=== PATIENT | female | born 1940 | race Caucasian/White ===

== ENCOUNTER 2018-04-07 06:58 | Day surgery (SDC) | payer OTHER, BC ==
[2018-04-05 15:02] VITALS: BMI 29.2
[2018-04-07] MEDS ORDERED: BUPIVACAINE HCL/PF 0.25% (2.5MG/ML) 10 ML VIAL ONE (07:26)
[2018-04-07] MEDS ORDERED: methylPREDNISolone ACET (DEPO) 80 MG/1 ML VIAL ONE (07:26)
[2018-04-07] MEDS ORDERED: PROPOFOL 20 ML ONE (08:57)
[2018-04-07] MEDS ORDERED: LIDOCAINE HCL 1% PRESERVATIVE FREE - 30ML VIAL IJ ONE (09:04)
[2018-04-07] MEDS ORDERED: methylPREDNISolone ACET (DEPO) 80 MG/1 ML VIAL IJ ONE (09:09)
[2018-04-07] MEDS ORDERED: BUPIVACAINE HCL/PF 0.25% (2.5MG/ML) 10 ML VIAL IJ ONE (09:09)
--- NOTE | 2018-04-07 10:41 | OP ---
DATE OF OPERATION: 04/07/2018 PREOPERATIVE DIAGNOSIS: Lumbar spinal stenosis and radiculopathy. POSTOPERATIVE DIAGNOSIS: Lumbar spinal stenosis and radiculopathy. [employer] SURGEON: Venkat Flood MD PROCEDURES: 1. Left L2-L3 epidural steroid injection. 2. Intraoperative fluoroscopy. ANESTHESIA: Local with IV sedation. ANESTHESIOLOGIST: Ale Lomeli MD INDICATIONS: The patient is a 77-year-old female with history of severe L4-5, moderate L2-3 and L3-4 stenosis. She had one injection 4 years earlier with good results. She has recently experienced increasing symptoms and is therefore here for her first epidural steroid injection this year. The risks of the procedure include, but are not limited to, bleeding, infection, spinal headache, and neurological injury. The patient understands indication for the procedure, procedure in detail, risks and benefits, and alternatives for the treatment of her lumbar condition, and wishes to proceed. No guarantees given for a favorable outcome. PROCEDURE IN DETAIL: The patient was taken to the operating room. She was placed in prone position with a pillow under her hips. Lumbar region was cleaned with alcohol and prepped with Betadine. A skin wheal raised with 5 mL of 1% Xylocaine. A 22-gauge spinal needle was inserted under AP and lateral fluoroscopic guidance from a left-sided approach to L2-3. Fairly difficult access was encountered, as the patient has extensive spondylosis and calcified ligaments. Loss of resistance technique was utilized. There was no CSF or blood back flow. After epidural space was accessed from a left-sided approach to L2-3, needle bevel was turned medially. Next, 80 mg of Depo-Medrol and 1 mL of 0.25% Marcaine was injected. Needle was withdrawn and sterile bandage was applied. The patient tolerated the procedure well, and returned back to the supine position, moving bilateral lower extremities well. She was not complaining of a headache. VENKAT FLOOD M.D. [id number] MTDD
[2018-04-07] MEDS ORDERED: traMADol HCL 50 MG TABLET ONE (11:08)
[2018-04-07 11:25] VITALS: PULSE 66
[2018-04-07 14:40] VITALS: BP 135/75; TEMP 97.8
== END 2018-04-07 13:00 | disposition home or self-care (01) ==
LOC: JASU-SURG 06:58
PROVIDERS: ATTEND Neurological Surgery
PROC: 3E0R33Z Introduction of Anti-inflammatory into Spinal Canal, Percutaneous Approach (ICD-10-PCS; 2018-04-07)
PROC: B01BZZZ Fluoroscopy of Spinal Cord (ICD-10-PCS; 2018-04-07)
PROC: 3E0R3BZ Introduction of Anesthetic Agent into Spinal Canal, Percutaneous Approach (ICD-10-PCS; principal; 2018-04-07 08:30)
DX: M48.061 Spinal stenosis, lumbar region without neurogenic claudication (principal); M54.16 Radiculopathy, lumbar region
CPT/HCPCS: 76000-TC-FY

== ENCOUNTER 2018-05-05 06:04 | Day surgery (SDC) | payer OTHER, BC ==
[2018-05-04 11:04] VITALS: BMI 29.2
[2018-05-05 06:31] VITALS: TEMP 97.5
[2018-05-05] MEDS ORDERED: methylPREDNISolone ACET (DEPO) 80 MG/1 ML VIAL ONE (07:23)
[2018-05-05] MEDS ORDERED: BUPIVACAINE HCL/PF 0.25% (2.5MG/ML) 10 ML VIAL ONE (07:23)
[2018-05-05] MEDS ORDERED: PROPOFOL 20 ML ONE (08:13)
[2018-05-05] MEDS ORDERED: BUPIVACAINE HCL/PF 0.25% (2.5MG/ML) 10 ML VIAL IJ ONE (08:21)
[2018-05-05] MEDS ORDERED: LIDOCAINE 1% P/F 10 MG/ML VIAL INF ONE (08:21)
[2018-05-05] MEDS ORDERED: methylPREDNISolone ACET (DEPO) 80 MG/1 ML VIAL IJ ONE (08:22)
--- NOTE | 2018-05-05 09:14 | OP ---
DATE OF OPERATION: 05/05/2018 PREOPERATIVE DIAGNOSIS: Lumbar facet disease with mechanical lower back pain. POSTOPERATIVE DIAGNOSIS: Lumbar facet disease with mechanical lower back pain. ATTENDING SURGEON: Venkat Flood MD PROCEDURE: 1. Bilateral L4-L5 facet block. 2. Intraoperative fluoroscopy. ANESTHESIA: Local with IV sedation. ANESTHESIOLOGIST: Ale Lomeli MD ESTIMATED BLOOD LOSS: Minimal. INDICATIONS: The patient is a 77-year-old female with back pain and lumbar radiculopathy. Previously, she had undergone epidural steroid injection with improvement of her radicular symptoms. Her mechanical back pain has recurred. She is here for her first facet block at L4-L5 for her facet disease. The risks of the procedure include, but are not limited to, bleeding, infection, spinal headache, and neurological injury. The patient understands the indications for the procedure, the procedure in detail, risks and benefits, and alternative treatments for her lumbar condition, and she wishes to proceed. No guarantees were given for a favorable outcome. PROCEDURE IN DETAIL: After the patient was taken to the operating room, she was placed in the prone position with a pillow under her hips. Lumbar region was cleaned with alcohol and prepped with Betadine. Bilateral skin wheal was raised over facet joints at L4-L5. A 22-gauge spinal needle was inserted under AP and lateral fluoroscopic guidance over the inferomedial aspect of the facet joint at L4-L5 bilaterally. There was no CSF or blood backflow. Depo-Medrol 80 mg and 1 mL of 0.25% Marcaine were injected in total, half on each side. The patient tolerated the procedure well and was turned back to the supine position, moving bilateral lower extremities well. She did not complain of headache. VENKAT FLOOD M.D. [id number]
[2018-05-05 10:36] VITALS: BP 191/77; PULSE 66
== END 2018-05-05 10:44 | disposition home or self-care (01) ==
LOC: JASU-SURG 06:04
PROVIDERS: ATTEND Neurological Surgery
PROC: 3E0T33Z Introduction of Anti-inflammatory into Peripheral Nerves and Plexi, Percutaneous Approach (ICD-10-PCS; 2018-05-05)
PROC: BR16YZZ Fluoroscopy of Lumbar Facet Joint(s) using Other Contrast (ICD-10-PCS; 2018-05-05)
PROC: 3E0T3BZ Introduction of Anesthetic Agent into Peripheral Nerves and Plexi, Percutaneous Approach (ICD-10-PCS; principal; 2018-05-05 08:00)
DX: M48.07 Spinal stenosis, lumbosacral region (principal); M54.5 Low back pain
CPT/HCPCS: 76000-TC-FY

== ENCOUNTER 2018-07-07 07:39 | Day surgery (SDC) | payer OTHER, BC ==
[2018-07-06 09:16] VITALS: BMI 29.2
[2018-07-07] MEDS ORDERED: PROPOFOL 20 ML ONE (09:10)
[2018-07-07] MEDS ORDERED: LIDOCAINE HCL 0.5%, 5 MG/1 ML (50mL MDV) NR ONE (09:16)
[2018-07-07] MEDS ORDERED: methylPREDNISolone ACET (DEPO) 80 MG/1 ML VIAL IM ONE (09:16)
--- NOTE | 2018-07-07 11:01 | OP ---
DATE OF OPERATION: 07/07/2018 PREOPERATIVE DIAGNOSIS: 1. Lumbar spinal stenosis. 2. Lumbar scoliosis. POSTOPERATIVE DIAGNOSIS: 1. Lumbar spinal stenosis. 2. Lumbar scoliosis. ATTENDING SURGEON: Venkat Flood MD PROCEDURE: 1. L2-L3 epidural steroid injection. 2. Intraoperative fluoroscopy. ANESTHESIA: Local with IV sedation. ANESTHESIOLOGIST: Ale Lomeli MD INDICATIONS: The patient is a 77-year-old female with a history of back pain and lumbar radiculopathy. Because of intractable symptoms and failure of conservative treatment, she is here for the second epidural steroid injection of the year. The risks of the procedure include, but are not limited to, bleeding, infection, spinal headache, and neurological injury. The patient understands the indications for the procedure, the procedure in detail, risks and benefits, and alternative treatments for her lumbar condition, and she wishes to proceed. No guarantees were given for a favorable outcome. PROCEDURE IN DETAIL: After the patient was taken to the operating room, she was placed in the prone position with a pillow under her hips. Lumbar region was cleaned with alcohol and prepped with Betadine. A skin wheal was raised with 5 mL of 1% Xylocaine, and a 20-gauge spinal needle was inserted under AP and lateral fluoroscopic guidance from a left-sided approach to L2-L3. A fairly tight-edged laminar space was noted on the left side of L2-L3. Loss of resistance technique was utilized, and there was no CSF or blood backflow. Depo-Medrol 80 mg and 1 mL of 0.25% Marcaine were injected. AP and lateral fluoroscopic imaging were applied. The patient tolerated the procedure well, was turned back to the supine position, moving bilateral lower extremities well. She did not complain of a headache. VENKAT FLOOD M.D. [id number]
[2018-07-07 12:09] VITALS: BP 120/60; PULSE 60; TEMP 98
== END 2018-07-07 11:15 | disposition home or self-care (01) ==
LOC: JASU-SURG 07:39
PROVIDERS: ATTEND Neurological Surgery
PROC: 3E0R33Z Introduction of Anti-inflammatory into Spinal Canal, Percutaneous Approach (ICD-10-PCS; 2018-07-07)
PROC: B01BZZZ Fluoroscopy of Spinal Cord (ICD-10-PCS; 2018-07-07)
PROC: 3E0R3BZ Introduction of Anesthetic Agent into Spinal Canal, Percutaneous Approach (ICD-10-PCS; principal; 2018-07-07 09:30)
DX: M48.061 Spinal stenosis, lumbar region without neurogenic claudication (principal); M41.86 Other forms of scoliosis, lumbar region; M54.89 Other dorsalgia
CPT/HCPCS: 76000-TC-FY

== ENCOUNTER 2018-10-15 09:16 | Day surgery (SDC) | payer OTHER, BC ==
[2018-10-07 12:38] VITALS: BMI 28.3
[2018-10-15] MEDS ORDERED: EPINEPHrine 1:1,000 1 MG/1 ML - 30ML VIAL (INJECTION) ONE (11:55)
[2018-10-15] MEDS ORDERED: BUPIVACAINE HCL/PF 2.5 MG/ML - 30 ML VIAL IJ ONE (11:55)
[2018-10-15] MEDS ORDERED: PROPOFOL 20 ML ONE (12:25)
[2018-10-15] MEDS ORDERED: CLINDAMYCIN PHOSPHATE 600 MG/4 ML VIAL ONE (12:37)
[2018-10-15] MEDS ORDERED: ePHEDrine SULFATE 50 MG/1 ML AMPULE ONE (12:46)
[2018-10-15] MEDS ORDERED: ONDANSETRON 4 MG/2 ML VIAL ONE (12:48)
[2018-10-15] MEDS ORDERED: LIDOCAINE HCL/PF 2% SDV 5ML VIAL ONE (12:48)
[2018-10-15] MEDS ORDERED: KETOROLAC TROMETHAMINE 30 MG/1 ML VIAL ONE (12:48)
[2018-10-15] MEDS ORDERED: DEXAMETHASONE SOD PHOSPHATE 4 MG/1 ML VIAL ONE (12:48)
[2018-10-15] MEDS ORDERED: BUPIVACAINE HCL/PF 0.25% (2.5MG/ML) 10 ML VIAL IJ ONE (13:04)
[2018-10-15] MEDS ORDERED: oxyCODONE HCL 5 MG TABLET PO PRN ×2 (13:21)
[2018-10-15] MEDS ORDERED: ONDANSETRON 4 MG/2 ML VIAL IVPUSH PRN (13:21)
[2018-10-15] MEDS ORDERED: PROMETHAZINE HCL 25 MG/1 ML VIAL IVPUSH PRN (13:21)
[2018-10-15 13:42] VITALS: TEMP 97.5
[2018-10-15] MEDS ORDERED: oxyCODONE HCL 5 MG TABLET ONE (14:18)
--- NOTE | 2018-10-15 15:12 | OP ---
DATE OF OPERATION: 10/15/2018 SURGEON: Haja Heard M.D. GOLD LAYER: Luis Pickett PREOPERATIVE DIAGNOSIS: 1. Left knee medial lateral meniscal tear. 2. Left knee cartilage injury. 3. Left knee synovitis. POSTOPERATIVE DIAGNOSIS: 1. Left knee medial lateral meniscal tear. 2. Left knee cartilage injury. 3. Left knee synovitis. PROCEDURE: 1. Left knee arthroscopy, partial meniscectomy medial and lateral meniscus. CPT code 81958. 2. Left knee arthroscopy with chondroplasty and abrasion plasty. CPT code 39143. 3. Left knee arthroscopy synovectomy. CPT code 75549. FINDINGS: 1. Medial meniscus anterior horn tear/minor. 2. Lateral meniscus anterior horn and posterior horn tear/minor. 3. Synovitis patellofemoral medial lateral notch area with large medial plica. 4. Anterior medial and medial femoral condyle 4 cm x 6 cm with grade 2 changes. 5. ACL and PCL intact. 6. Minimal cartilage changes lateral joint line. 7. Central grade 2-3 cartilage injury patellofemoral trochlea with grade 4 changes at the site of medial plica adhesion. PROCEDURE: Informed consent was obtained. The patient came to the operating room, where the lower extremity was prepped and draped in a sterile fashion. A tourniquet was placed on the upper thigh, but not inflated. Using standard arthroscopic technique, a lateral incision and portal was made to allow for introduction of the camera into the suprapatellar bursa. This was then taken to the medial joint line, where under direct visualization, a medial incision and portal was made. Excessive synovium noted in the medial, lateral and patellofemoral and notch area was removed by an upbiter, shaver and Bovie cautery. This was found to bring in inflammatory tissue into the joint surface, a source of pain and dysfunction. Probing of the medial and lateral meniscus found tears, as described in the findings. These were removed with the upbiter and shaver and taken back to a stable rim. Grade 2 to 3 degenerative changes were treated with a chondroplasty, removing all flaking surfaces with low-setting Bovie along the periphery to prevent further flaking. Grade 4 changes, as noted, were treated with an abrasoplasty, creating a bleeding surface at the bone/cartilage interface. Aggressive debridement with shaver/jan created bleeding surface. Micro fracture also done when indicated in findings. All areas of the knee were once again reexamined. The knee was then drained and a single suture was placed in all portals. A sterile dressing was placed and the patient was transferred to the recovery room without complication. The PA listed above was present and assisted at surgery. Their presence was absolutely medically necessary for the completion of the procedure. They helped hold the arthroscopy, pass instruments (and implants when indicated) and the procedure could not have been completed without their assistance. HAJA HEARD M.D. [id number]
[2018-10-15 15:39] VITALS: PULSE 62
[2018-10-15 18:13] VITALS: BP 122/78
--- NOTE | 2018-10-19 17:28 | PATH ---
Surgical Pathology Report Patient Name: ANNITA SARGENT [facility]. Rec. #: [id number] /Age/Gender: 1940 (Age: 78) / F Account: [id number] Location: [facility] Taken: 10/15/2018 Received: 10/15/2018 Reported: 10/19/2018 Physicians: Haja Flores M.D. Specimen(s) Received LEFT KNEE SHAVINGS Clinical History Left knee internal derangement Final Diagnosis KNEE SHAVINGS, LEFT, ARTHROSCOPY: FRAGMENTS OF CARTILAGE, DENSE FIBROCONNECTIVE TISSUE, ADIPOSE TISSUE, AND SYNOVIUM. Electronically Signed Zulma Waldron M.D. Gross Description Received in formalin, labeled "left knee shavings," is a 4.5 x 3.6 x 0.3 cm. aggregate of romo-yellow soft tissue fragments. A benefits representative portion is submitted in one cassette. /10/18/2018 saudi10/18/2018
== END 2018-10-15 16:20 | disposition home or self-care (01) ==
LOC: FASU 09:16
PROVIDERS: ATTEND Orthopaedic Surgery
PROC: 0SBD4ZZ Excision of Left Knee Joint, Percutaneous Endoscopic Approach (ICD-10-PCS; 2018-10-15)
PROC: 0SBD4ZZ Excision of Left Knee Joint, Percutaneous Endoscopic Approach (ICD-10-PCS; 2018-10-15)
PROC: 0SBD4ZZ Excision of Left Knee Joint, Percutaneous Endoscopic Approach (ICD-10-PCS; principal; 2018-10-15 12:50)
DX: S83.242A Other tear of medial meniscus, current injury, left knee, initial encounter (principal); S83.282A Other tear of lateral meniscus, current injury, left knee, initial encounter; S83.8X2A Sprain of other specified parts of left knee, initial encounter; M65.862 Other synovitis and tenosynovitis, left lower leg; X58.XXXA Exposure to other specified factors, initial encounter; Y93.9 Activity, unspecified; Y92.9 Unspecified place or not applicable
CPT/HCPCS: 88304-TC; 94760

== ENCOUNTER 2021-06-09 15:40 | Emergency (ER) | payer OTHER, BC ==
[2021-06-09 15:54] VITALS: BMI 29.2
[2021-06-09] MEDS ORDERED: SODIUM CHLORIDE 0.9% 500 ML INFUS.BAG IV ONE (16:22)
[2021-06-09 16:54] LABS: ALBUMIN 3.9 g/dl (3.4-5.0); ALK PHOS 83 U/L (45-117); ANION GAP 13 MMOL/L (8-16); BILIRUBIN,TOTAL 1.2 mg/dl (0.2-1); CALCIUM 9.1 mg/dl (8.5-10); CHLORIDE 100 mmol/L (98-107); CO2 24 mmol/L (21-32); CREATININE 1.1 mg/dl (0.55-1.3); GLUCOSE,RANDOM 96 mg/dl (74-106); MAGNESIUM 1.8 mg/dL (1.8-2.4); PHOSPHOROUS 4.2 mg/dl (2.5-4.9); SGOT/AST 21 U/L (15-37); SGPT/ALT 22 U/L (13-61); SODIUM 137 mmol/L (136-145); TOT PROT 6.9 g/dl (6.4-8.2)
[2021-06-09 17:58] LABS: LIPASE 71 U/L (73-393)
[2021-06-09 18:25] LABS: BASO % 0.7 % (0-2.0); EOS % 1.3 % (0-4.5); HEMATOCRIT 42.8 % (32.4-45.2); HEMOGLOBIN 14.3 GM/dL (10.7-15.3); LYMPH % 24.2 % (8-40); MCH 30.7 pg (25.7-33.7); MCHC 33.5 g/dl (32.0-36.0); MEAN CELL VOLUME 91.5 fl (80-96); MEAN PLT VOLUME 8.1 fl (7.5-11.1); MONO % 13.2 % (3.8-10.2); NEUT % 60.6 % (42.8-82.8); PLATELET COUNT 372 10^3/uL (134-434); RBC 4.68 M/mm3 (3.60-5.2); RDW 13.3 % (11.6-15.6); WHITE BLOOD COUNT 9.1 K/mm3 (4.0-10.0)
[2021-06-09 20:00] VITALS: BP 130/78; PULSE 86; TEMP 97.8
== END 2021-06-09 19:55 | disposition home or self-care (01) ==
LOC: FER 15:40
DX: R19.7 Diarrhea, unspecified (principal); R10.30 Lower abdominal pain, unspecified
CPT/HCPCS: 36415; 74177-TC; 80053; 82550; 83690; 83735; 84100; 84484; 85025; 93005; 99285-25; C9803; U0003; U0005

== ENCOUNTER 2022-09-02 13:35 | Emergency (ER) | payer OTHER, BC ==
[2022-09-02] MEDS ORDERED: ACETAMINOPHEN 500 MG TABLET (FP) ONE ×2 (13:45→13:46)
[2022-09-02 14:05] VITALS: BP 107/59; PULSE 91; RESP 18; TEMP 98.1; BMI 27.3
== END 2022-09-02 14:25 | disposition home or self-care (01) ==
LOC: FER 13:35
PROC: 0HQKXZZ Repair Right Lower Leg Skin, External Approach (ICD-10-PCS; principal; 2022-09-02)
DX: S81.011A Laceration without foreign body, right knee, initial encounter (principal); W01.0XXA Fall on same level from slipping, tripping and stumbling without subsequent striking against object, initial encounter
CPT/HCPCS: 99283-25

== ENCOUNTER 2022-09-13 13:04 | Emergency (ER) | payer OTHER, BC ==
[2022-09-13] MEDS ORDERED: SULFAMETHOXAZOLE/TRIMETHOPRIM 800MG/160MG D.S. TABLET PO ONE (13:26)
[2022-09-13 13:35] VITALS: BP 135/75; PULSE 77; RESP 78; TEMP 98.2; BMI 24.1
[2022-09-13] MEDS ORDERED: SULFAMETHOXAZOLE/TRIMETHOPRIM 800MG/160MG D.S. TABLET ONE (13:38)
== END 2022-09-13 13:45 | disposition home or self-care (01) ==
LOC: FER 13:04
DX: S81.811A Laceration without foreign body, right lower leg, initial encounter (principal); L03.115 Cellulitis of right lower limb; Y99.9 Unspecified external cause status
CPT/HCPCS: 99283-25